=== PATIENT | male | born 1955 | race Caucasian/White ===

== ENCOUNTER 2018-12-10 05:43 | Emergency (ER) | payer OTHER ==
[~2018-12-10] VITALS: Ht 175.3 cm; Wt 75.3 kg
[2018-12-10] MEDS ORDERED: IBUPROFEN 800800 MG PO (06:26)
[2018-12-10] MEDS ORDERED: PENICILLIN V P500 MG PO (06:26)
[2018-12-10] MEDS ORDERED: LORCET 5-325 M1 EACH PO (06:26)
[2018-12-10 06:41] VITALS: BP 189/100
== END 2018-12-10 06:41 | disposition home or self-care (01) ==
LOC: M.ERS 05:43
DX: K02.9 Dental caries, unspecified (principal)